=== PATIENT | female | born 1955 | race Caucasian/White ===

== ENCOUNTER 2025-04-08 02:00 | Day surgery (SDC) | payer MEDICARE, SELFPAY ==
[2025-03-24 13:46] VITALS: BMI 26.9
--- OUTSIDE RECORDS SUMMARY | 2025-04-08 02:02 | XMS_ITS | Patient Health Record ---
Author Organization [facility] Address [address] [address] Care Team Providers Care Packaging Tech Name Role Phone Andrés Brasher MD Primary Care Provider Janina Rossi MD, Farhad Unavailable Allergies Allergen (clinical drug ingredient) Drug/Non Drug Allergy documented on EMR Reaction Allergy Type Onset Date Status Substance with penicillin structure and antibacterial mechanism of action (substance) Penicillins (uncoded) Unknown Allergy Active Reason For Referral No Information Medications Medication SIG (Take, Route, Frequency, Duration) Notes Start Date End Date Status Calcium once a day *please review f or potential update for e-prescription and drug interaction check* 08/16/2016 Active Multivitamin Adult once a day *please revie w for potential update for e-prescription and drug interaction check* 08/16/2016 Active Aspirin Adult Low Dose once a day *please review for potential update for e-prescription and drug interaction check* 08/16/2016 Active Social History Social History Additional Details Category Social Info Options Details Migrated Social History Migrated Social History Tobacco Use:(Tobacco Use/Smoking):Are you a: nonsmoker ; Section Notes: lives alone, coffee: 1/d, al cohol: 2/week, smoking: never, 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, coffee: 1/d, al cohol: 2/week, smoking: never, work: nanny Problems Problem Type SNOMED Code ICD Code Onset Dates Problem Status W/U Status Risk Notes Problem Polyp of colon (31417102) Polyp of colon (K63.5) 09/28/2016 Active confirmed (Krystian) Problem History of polyp of colon (situation) (896037659) Personal history of colonic polyps (Z86.010) Active confirmed Problem History of polyp of colon (situation) (551987068) History of colonic polyps (Z86.010) Active confirmed Plan Of Treatment No Information Insurance Providers Payer Name Payer Address Payer Phone Subscriber Number Group Number Insured Name Patient Relationship to Insured Coverage Start Date Coverage End Date [employer] CHOICE MEDICARE REPLACEMENT PP [address] [address] [place], [place] [id number] Brisa Alvarez Self - patient is the insured 0 Medical (General) History Surgical History Surgery Date(Month/Year) colonoscopy: small int hem. 01/03 colonoscopy: small int hem., polyp: cecu m, asc: adenomas, desc.: SSA 09/02 laser L eye x2
--- OUTSIDE RECORDS SUMMARY | 2025-04-08 02:02 | XMS_ITS | Clinical Summary ---
Author Organization [facility] Address [facility] [place] [address] Care Team Providers Care Coroner Technician Name Role Phone Alka Cardenas QUALIFICATION ENGINEER Primary Care Provider [phone] Allergies Active Allergy Reactions Criticality Noted Date Comments Penicillins Anaphylaxis High 02/22/2024 Medications No known medications Active Problems Problem Noted Date Diagnosed Date Situational anxiety 01/03/2025 Elevated blood pressure read ing without diagnosis of hypertension 10/03/2024 History of colon polyps 02/22/2024 Age-related cataract of both eyes, unspecified age-related cataract type 02/22/2024 History of vertigo 02/22/2024 Left foot pain 02/22/2024 Allergic rhinitis, unspecifi ed seasonality, unspecified trigger 02/22/2024 Encounters Date Type Department Care Team Description 01/22/2025 Telephone [facility] [address] [place] [address] Alka Cardenas, RAMONA Information 01/13/2025 Telephone [facility] [address] [place] [address] Alka Cardenas, RAMONA Record Request from Last 3 Months Family History Medical History Relation Comments Heart Disease Brother Heart Disease Father Breast Cancer Maternal Aunt Cancer Maternal Aunt Arthritis Mother Breast Cancer Mother Cancer Mother Heart Disease Mother Skin cancer Mother Breast Cancer Paternal Aunt Heart Disease Paternal Grandfather Breast Cancer Paternal Grandmother Cancer Paternal Grandmother Relation Status Comments Brother Father Maternal Aunt Mother Alive Paternal Aunt Paternal Grandfather Paternal Grandmother Social History Tobacco Use Types Packs/Day Years Used Date Smoking Tobacco: Never Passive Smoke Exposure: Never Smokeless Tobacco: Never Tobacco Cessation:Counseling Given: No Alcohol Use Standard Drinks/Week Comments Not Currently 0 (1 standard drink = 0.6 oz pur e alcohol) PHQ-2 Answer Date Recorded Patient Health Questionnaire-2 Score 0 01/03/2025 Comments No Sex and Gender Information Value Date Recorded Sex Assigned at Female 02/20/2024 3:11 PM CDT Legal Sex Female 3:57 PM CDT Gender Identity Female 02/20/2024 3:11 PM CDT Sexual Orientation Straight 02/20/2024 3: 11 PM CDT Last Filed Vital Signs Vital Sign Reading Time Taken Comments Blood Pressure 142/82 01/03/2025 8:14 AM CDT Pulse 69 01/03/2025 8:02 AM CDT Temperature 36.6 C (97.8 F) 01/03/2025 8:02 AM CDT Respiratory Rate 18 01/03/2025 8:02 AM CDT Oxygen Saturation 97% 01/03/2025 8:02 AM CDT Inhaled Oxygen Concentration - - Weight 68 kg (150 lb) 01/03/2025 8:02 AM CDT Height 161.3 cm (5' 3.5) 01/03/2025 8:02 AM CDT Body Mass Index 26.15 01/03/2025 8:02 AM CDT Plan of Treatment Upcoming Encounters Date Type Department Care Team (Late st Contact Info) Description 05/23/2025 10:20 AM MASTER TAX ADVISOR Office Visit [facility] [place] [address] [place] [address] Alka Cardenas, RAMONA [address] [place] [address] Health Maintenance Due Date Last Done Comments Annual Medicare Wellness Visit 2018 Dexa Scan (General) 2018 COVID-19 Vaccine ( - 2023-2 5 season) 2025 DTaP, Tdap and Td Vaccines ( 1 - Tdap) 01/03/2026 Postponed from 10/24 (Patient Refused) Pneumococcal Vaccine: 50+ Years (1 of 1 - PCV) 01/03/2026 Postponed from 10/15 (Patient Refused) Zoster Vaccines (1 of 2) 01/03/2026 Pos tponed from 10/25/2003 (Patient Refused) Mammogram Screening 06/12/2026 06/12/2024, 05/14/2024, 08/02/2023 RSV Immunization or 60+ Years (1 - 1-dose 75+ series) 2028 Colorectal Cancer Screening Colonoscopy (10 Years) 01/02/2030 01/03/2020 Hepatitis C Completed 10/03/2024 PHQ-2 (Physician [place]) Completed 01/03/2025 Meningococcal B Vaccine Aged Out No l onger eligible based on patient's age to complete this topic Meningococcal Vaccine Aged Out No kylee ana eligible based on patient's age to complete this topic RSV Immunizations Under 20 Months Aged Out No longer eligible b ased on patient's age to complete this topic Procedures Procedure Name Priority Date/Time Associated Diagnosis Comments HEPATITIS C ANTIBODY Routine 10/03/2024 10:22 AM CDT Need for hepatitis C screening test MG DIAG W RIVERA LT DIGI Routine 06/12/2024 12:36 PM MASTER TAX ADVISOR Abnormal mammogram of left breast COLONOSCOPY GENERIC (SCAN ORDER) 01/03/2020 from Last 3 Months or Most Recently Relevant to Health Maintenance Results * HEPATITIS C ANTIBODY (10/03/2024 10:22 AM CDT) HEPATITIS C AB NON-REACTI VE NON-REACT MARY ANN 10/03/2024 6:17 PM CDT [facility] Comment: ANTIBODIES TO HCV NOT DETECTED. DOES NOT EXCLUDE THE POSSIBILITY OF EXPOSURE TO HCV. 10/03/2024 10:2 2 AM CDT us Alka Cardenas NP LABORATORY Final Resul t [facility] [address] [place] [address], [id number] * MG CHURCH W RIVERA LT DIGI (06/12/2024 12:36 PM MASTER TAX ADVISOR) Anatomical Region Laterality Modality Breast Left Mammography 06/12/2024 12:3 8 PM MASTER TAX ADVISOR Impressions 06/12/2024 12:42 PM MASTER TAX ADVISOR IMPRESSION: Stable typically benign layering calcifications and effacing superimposed fibroglandular tissue at the left inner breast. Previous benign concordant biopsy within this region. No mammographic evidence of malignancy. RECOMMENDATION: Routine ScreeningBilateral Findings, impression, and recommendation were discussed with the patient immediately following exam completion. OVERALL IMAGING ASSESSMENT: ACR BI-RADS 2 - BENIGN FINDING(S). Ordered By: ALKA CARDENAS Interpreted By: Parvez Saxena, 06/12/2024 12:38 PM Narrative 06/12/2024 12:42 PM MASTER TAX ADVISOR [facility] [address] [place] [address] EXAMINATION: MG LYNNETTE Ledbetter RIVERA LT DIGI INDICATIONS: Abnormal mammogram TECHNIQUE: Digital full field true lateral, magnification CC, and spot compression MLO diagnostic views of the left breast to include 3-D Tomosynthesis technique. This study was read with the assistance of a computer-aided detection system. HISTORY: Patient presents for diagnostic evaluation of indeterminate microcalcifications in asymmetry on screening mammography. Prior benign left breast biopsies. No history of breast cancer. No current breast complaint. COMPARISON: Multiple prior examinations available for comparison dating back to 09/07/2009, the most recent of 05/14/2024, 06/22/2022,05/26/2021, and 12/09/2020 TISSUE DENSITY: The breasts are heterogeneously dense, which may obscure small masses. FINDINGS: Calcifications at the inner middle to posterior depth breast are largely amorphous with few round calcifications and layer on true lateral view. These are stable in quantity, morphology, and distribution relative to multiple prior examinations. 2 adjacent breast biopsy clips. Asymmetry effaces with spot compression without underlying mass or architectural distortion. This is stable over multiple prior examinations. No suspicious microcalcification or mass. No developing asymmetry or architectural distortion. No axillary adenopathy. us Alka Cardenas NP MAMMO Final Resul t * COLONOSCOPY GENERIC (SCAN ORDER) (01/03/2020) 01/03/2020 us [facility] Scanned SCANNING Final Resu lt from Last 3 Months or Most Recently Relevant to Health Maintenance Insurance HUMANA Care Teams Coroner Technician Relationship Specialty Start Date End Date Alka Cardenas, RAMONA [address] [facility] [address] [place] [address] PCP - General NURSE PRACTITIONER 02/22/24
--- OUTSIDE RECORDS SUMMARY | 2025-04-08 02:02 | XMS_ITS | Clinical Summary ---
Author Organization [facility] Address [address] [place] [address] Care Team Providers Care Boiler Plant Worker Name Role Phone Unavailable Primary Care Provider Unavailabl e Social History Tobacco Use Types Packs/Day Years Used Date Smoking Tobacco: Never Assessed Comments Unknown Sex and Gender Information Value Date Recorded Sex Assigned at Not on file Legal Sex Female 11:24 PM FACING BASTER Gender Identity Not on file Sexual Orientation Not on file Plan of Treatment Not on file
--- OUTSIDE RECORDS SUMMARY | 2025-04-08 02:02 | XMS_ITS | Patient Health Record ---
Author Organization [facility] Address [address] [place] [address] Care Team Providers Care Human Resources Temp Name Role Phone Jacy Martel Unavailable Allergies Allergen (clinical drug ingredient) Drug/Non Drug Allergy documented on EMR Reaction Allergy Type Onset Date Status PCN RASH, SWELLS Drug Allergy Acti ve Reason For Referral No Information Medications Medication SIG (Take, Route, Frequency, Duration) Notes Start Date End Date Status Aspir-81 81 MG Tablet Delayed Release 1 tablet Orally Once a day *Reorder from [employer] for eRx and Interaction Alerts* Active Calcium 1 tab Oral *Pick strength-f orm from [employer] for eRX* Active Multivitamin/Minera ls *Pick strength-form from [employer] for eRX* Active Social History Social History Additional Details Category Social Info Options Details Migrated Social History Drugs/Alcohol: (Alcohol Screen): Did you have a drink containing alcohol in the past year?: Yes, How often did you have a drink containing alcohol in the past year?: Monthly or less (1 point), Points: 1, Interpretation: Negative Tobacco Use: (Tobacco Use/Smoking): Are you a: nonsmoker Household: (Household):Spiritism: Mandaeism, Level of education: finished college Miscellaneous: (Caffeine:):yes frequency:, 2-3 cups per day (Exercise:):yes DAILY (Marital status:): (Occupation:):NANNY, works full-time Problems Problem Type SNOMED Code ICD Code Onset Dates Problem Status W/U Status Risk Notes Problem Screening for osteoporosis (104473166) Special screening for osteoporosis (V82.81) Active confirmed Problem Screening mammography (41213298) Other screening mammogram (V76.12) Active confirmed Problem Postmenopausal atrophic vaginitis (34968353) Postmenopausal atrophic vaginitis (627.3) Active confirmed Problem Gynecological examination normal (458131177445076) Routine gynecological examination (V72.31) Active confirmed Plan Of Treatment No Information Medical (General) History Surgical History Surgery Date(Month/Year) laser surgery RETINA 03/2014 section X2
[2025-04-08 09:15] VITALS: BP 148/79; PULSE 79; RESP 18; TEMP 36.6; O2SAT 97
[2025-04-08] MEDS: LACTATED RINGERS 1,000 ML 150 ML IV CONT (09:17)
--- NOTE | 2025-04-08 09:34 | WPDANESEPPF ---
Anes - Initial Pre Proc Eval Procedure: Operation Date: 04/08/25 10:00 Proposed Procedures p Screening Colonoscopy - Dario Gao MD Date/Time: 04/08/25 09:34 Surgeon: Dario Goa MD Pre Op Diagnosis: Personal history of colon polyps, unspecified Patient Data Age: 69 Gender: F Height: 1.6 m Weight: 67.3 kg Last Vital Signs Temp 97.9 F 04/08/25 09:15 Pulse 79 04/08/25 09:15 Resp 18 04/08/25 09:15 BP 148/79 H 04/08/25 09:15 Pulse Ox 97 04/08/25 09:15 O2 Del Method Room Air 04/08/25 09:15 Allergies Allergy/AdvReac Type Severity Reaction Status Date / Time Penicillins Allergy Swelling Verified 03/24/25 13:44 of Lip/Tongue/Throat Home Medications ?Medication ?Instructions ?Recorded ?Confirmed ?Type No Home Medications 03/24/25 03/24/25 History Patient hx anesthesia problems: none Family hx anesthesia problems: none Results Review: All pre-operative results and documents have been reviewed as part of the pre-operative evaluation. [facility] Social History Social History Smoking status: Never smoker Alcohol intake: never Substance use type: does not use Living arrangements: with family Spiritual care concerns: No Anes - Eval Final PreProcedure Day of Procedure 04/08/25 09:34 Patient weight: normal Lungs: normal air movement Airway: Mallampati scale class II Neurological: alert and oriented Last oral intake: >/= 8 hours ASA classification: I Emergent: no Anesthetic plan: proceed Anesthesia type and monitoring: general GIVS and standard monitoring Results Review: All pre-operative results and documents have been reviewed as part of the pre-operative evaluation. Healthy, active w walking outdoors, no cp or sob. Informed Consent: The patient's anesthetic plan and its attendant risks and benefits were discussed with the patient/family/POA. Questions were solicited and answers provided to the satisfaction of the patient/family/POA.
--- NOTE | 2025-04-08 09:55 | P.HP_ITS ---
History of Present Illness History of Present Illness Consent: Risks, benefits, and alternatives have been discussed and questions answered. Patient agrees to proceed with procedure. Chief complaint: Personal history of colon polyps, unspecified Narrative: Brisa Alvarez is a 69 year old female with colon polyp 5 years ago Review of Systems Review of Systems: All systems reviewed & are unremarkable except as noted in HPI and below PMFSH Past Medical History Medical History (Updated 04/08/25 @ 09:57 by Dario Gao MD) Colon polyp Social History Social History Smoking status: Never smoker Alcohol intake: never Substance use type: does not use Living arrangements: with family Spiritual care concerns: No Meds Home Medications and Allergies Home Medications ?Medication ?Instructions ?Recorded ?Confirmed ?Type No Home Medications 03/24/25 03/24/25 H istory Allergies Allergy/AdvReac Type Severity Reaction Status Date / Time Penicillins Allergy Swelling Verified 03/24/25 13:44 of Lip/Tongue/Throat Vital Signs Vital Signs - 24 hr 04/08/25 09:15 Temperature 97.9 F Pulse Rate 79 Respiratory Rate 18 Blood Pressure 148/79 H Pulse Oximetry 97 Oxygen Delivery Room Air Exam Const: General: comfortable and no acute distress HENMT: Face/Nose/Sinus: Normal nares present Eyes: General: appearance normal, both eyes and all related structures Neck: Neck: no JVD Resp: Auscultation: clear to auscultation bilaterally Cardio: Rate: regular rate Rhythm: regular rhythm GI: Inspection: non-distended GI Palp: Yes Soft to palpation Skin: General skin exam: normal color Neuro: Speech: normal speech Extrem: General: normal to inspection Psych: Mental Status: mental status grossly normal Assessment and Plan Assessment and plan (1) Colon polyp: Code(s): K63.5 - Polyp of colon Status: Acute Assessment and Plan: colonoscopy
--- NOTE | 2025-04-08 10:07 | S_PTH ---
PATIENT: Brisa Alvarez LOC: [facility]#:[id number] AGE/SX: 69/F ROOM: RE04/08/[address]: Dario Gao MD : 1955 BED: DIS: 04/08/2025 SPEC #: [id number] RECD: 04/08/25 10:24 STATUS: MURIEL RELe #: [id number] CASE: 04/08/25 10:[address]: Dario Gao DEPT: [facility] Surgical RECD BY: Jonh Bates ENTERED: 04/08/25 10:24 SP TYPE: Surgical OTHR DR: Alka Cardenas, WEATHER OBSERVER Tissues: A - Colon Polypectomy Procedures: Hematoxylin and Eosin Stain Gross and Microscopic Level 4
[2025-04-08 10:12] VITALS: BP 104/56; PULSE 75; RESP 20; O2SAT 97
[2025-04-08 10:22] VITALS: BP 112/53; PULSE 77; RESP 24; O2SAT 95
[2025-04-08 10:32] VITALS: BP 124/61; PULSE 82; RESP 21; O2SAT 97
== END 2025-04-08 10:40 | disposition home or self-care (01) ==
PROVIDERS: PCP Nurse Practitioner; Referring Provider Nurse Practitioner; Visit Provider Internal Medicine Gastroenterology
PROC: 0DJD8ZZ Inspection of Lower Intestinal Tract, Via Natural or Artificial Opening Endoscopic (ICD-10-PCS; CPT 45378; principal; 2025-04-08 10:00)
DX: Z12.11 Encounter for screening for malignant neoplasm of colon (principal); D12.3 Benign neoplasm of transverse colon; K64.8 Other hemorrhoids
CPT/HCPCS: 45385; 88305; J7120

== ENCOUNTER 2025-07-01 09:24 | Outpatient (CLI) | payer MEDICARE, SELFPAY ==
--- NOTE | ~2025-07-01 | MR_ITS ---
EXAM/PROCEDURE: MR foot LT wo con HISTORY: peroneal tendinitis, lt leg COMPARISON: None available. TECHNIQUE: Multiplanar left foot MRI without contrast. FINDINGS: No fracture subluxation or dislocation. No aggressive bony lesions seen. The peroneal longus tendon is thickened in the hindfoot region and becomes diffusely increased in signal extending to the particularly thickened as it courses along the plantar margin of the cuboid bone. See image 18 series 8. There may also be fibrous coalition or alternatively severe degenerative change with near complete obliteration of the calcaneocuboid articulation. The peroneal longus tendon extends distally with a linear T2 weighted hyperintense defect probably representing small tear; see images 9 through 14 of series 8. The peroneal brevis tendon appears normal. The flexor tendons have trace amounts of fluid within the tendon sheaths but otherwise appear normal. Visualized portions of the Achilles tendon and extensor tendons appear normal. The sinus tarsus and tarsal tunnel regions appear normal. Talofibular, calcaneofibular and deltoid ligaments appear intact. 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 A small split tear is also present in the tendon distal to the cuboid bone extending to the insertion. Reviewed, dictated and finalized at location A. BLENDER IMPRESSION: Abnormally thickened and hyperintense signal changes in the peroneal longus ten don which is particularly thickened along the base of the cuboid bone; fibrous coalition of the calcaneocuboid articulation or severe degenerative changes consuelo ear to be present. A small split tear is also present in the tendon distal to t he cuboid bone extending to the insertion.
== END 2025-07-01 09:25 | disposition home or self-care (01) ==
LOC: MICIMG 09:25
PROVIDERS: PCP Nurse Practitioner; Visit Provider Podiatrist Foot & Ankle Surgery
DX: M76.72 Peroneal tendinitis, left leg (principal)
CPT/HCPCS: 73718